=== PATIENT | female | born 1985 | race Caucasian/White ===

== ENCOUNTER 2021-03-21 19:53 | Observation (INO) | payer OTHER ==
[~2021-03-21] VITALS: Ht 157.5 cm; Wt 70.3 kg
--- NOTE | ~2021-03-21 | OP ---
[address] [address] OPERATIVE REPORT Name: ANA DORSEY Room: [address] [place]#: [id number] Admission: 03/21/21 Attend Phys: Tal Mckeon DO Discharge: 03/22/21 Date of : 83 Report #: [id number] THIS REPORT FOR: cc: FAM - No family physician/PCP FAM - No family physician/PCP Tal Mckeon DO ~ Dictated by Chris Vallejo DO DATE OF SURGERY: 03/22/2021 PREOPERATIVE DIAGNOSIS: Acute appendicitis. POSTOPERATIVE DIAGNOSIS: Acute appendicitis. PROCEDURE PERFORMED: Laparoscopic appendectomy. SURGEON: Tal Mckeon DO CO-SURGEON: Chris Vallejo, PGY5. PROCESSING SUPERVISOR: None. ANESTHESIA: General and local. SPECIMENS: Appendix. ESTIMATED BLOOD LOSS: 5 mL. COMPLICATIONS: None. FINDINGS: Acute appendicitis with localized peritonitis. INDICATIONS: The patient is a 36-year-old female who presented to the Emergency Room with acute right lower quadrant abdominal pain. CT scan revealed acute appendicitis, which was confirmed by physical exam. We discussed laparoscopic appendectomy at length including risks, benefits and alternatives and she agreed to proceed with surgery. DESCRIPTION OF PROCEDURE: After consent was obtained, the patient was taken to the operating room and placed in the supine position. SCDs applied to bilateral lower extremities, safety belt was applied to the patient to secure into the bed. Perioperative Zosyn was continued. General endotracheal anesthesia was administered by anesthesia without any complication. The patient's abdomen was prepped and draped in the standard sterile fashion. Timeout was performed, confirming the patient, procedure. An 11 blade scalpel was used to make a transverse incision just below the umbilicus. Electrocautery used for [address] [address] OPERATIVE REPORT Name: ANA DORSEY Room: [address] [place]#: [id number] Admission: 03/21/21 Attend Phys: Tal Mckeon DO Discharge: 03/22/21 Date of : 83 Report #: [id number] hemostasis and to dissect down to the level of fascia. Once the fascia was encountered, it was scored with electrocautery. The fascia was grasped between 2 Kochers and a hemostat was then used bluntly into the peritoneum. Two stitches of 0 Vicryl were placed on either side of the fascia, 5 mm Grant trocar was inserted into the abdomen. Insufflation was initiated. Intraabdominal contents were inspected. The appendix could not be seen. However, the cecum could be traced in the right lower quadrant. Two more trocars, one suprapubic and one in the left lower quadrant were placed under direct visualization. Left lower quadrant trocar was a 12 mm port. The tinea of the cecum was traced towards the terminal ileum. The appendix appeared to be wrapping retrocecal. It was grasped and elevated. It appeared to be injected and erythematous consistent with acute appendicitis. Harmonic scalpel was used to ligate across the mesoappendix towards the base of the appendix. A 45 purple load Endo-TERESO stapler device was used to fire across the base of the appendix at the junction with the cecum. Appendix was then placed in laparoscopic EndoCatch bag. Staple line was inspected. There was no evidence of bleeding. Insufflation was let down slightly again and there was no evidence of bleeding in the staple line. The pelvis was inspected. Uterus and ovaries appeared to be normal. At this point, insufflation was let down. All trocars were removed under direct visualization. Appendix was removed from the abdomen and sent for pathologic evaluation. Infraumbilical fascia was reapproximated with one stitch of 0 Vicryl in a [id number]-brnrb fashion. All skin incisions reapproximated with 4-0 Monocryl in subcuticular fashion. All needle, instrument and sponge counts correct x2 at the end of the case. The patient was awoken from general anesthesia and transferred to PACU in stable condition. By: [id number] Mckeon DO /shonna
[~2021-03-21 19:53] MED LIST: MACROBID 100 M100 M1 PO; NOHOMEMEDICATIONS
[2021-03-21 20:10] VITALS: BP 127/88
[2021-03-21 20:27] LABS: URINE BILIRUBIN NEGATIVE (Negative); URINE BLOOD 3+ (Negative); URINE CLARITY CLEAR; URINE COLOR YELLOW; URINE GLUCOSE-RANDOM NEGATIVE (Negative); URINE KETONES NEGATIVE (Negative); URINE LEUKOCYTES NEGATIVE (Negative); URINE NITRITE NEGATIVE (Negative); URINE PROTEIN NEGATIVE (Negative); URINE SPECIFIC GRAVITY >= 1.030 (1.005-1.030); URINE UROBILINOGEN 0.2 E.U./dl (0.2-1.0)
[2021-03-21 20:33] LABS: CASTS None Seen /LPF (None Seen); CRYSTALS None Seen /LPF (None Seen); MUCUS None Seen strn/LPF (None Seen); SQUAMOUS >10 Many /LPF (0-3)
[2021-03-21 20:34] LABS: URINE WBC 0-5 Rare /HPF (0-5)
[2021-03-21 20:35] LABS: URINE RBC 0-2 Rare /HPF (0-2)
[2021-03-21 21:08] LABS: ABSOLUTE BASOPHILS 0.1 thou/uL (0.0-0.2); ABSOLUTE EOSINOPHILS 0.2 thou/uL (0.0-0.7); ABSOLUTE LYMPHOCYTES 2.2 thou/uL (0.8-5.3); ABSOLUTE MONOCYTES 0.7 thou/uL (0.0-1.2); ABSOLUTE NEUTROPHILS 13.8 thou/uL (1.6-8.1); BASOPHILS 0.4 %; EOSINOPHILS 1.2 %; HEMATOCRIT 38.2 % (37.0-47.0); HEMOGLOBIN 12.8 gm/dL (12.0-15.0); LYMPHOCYTES 12.8 %; MCH 29.5 pg (26.0-34.0); MCHC 33.6 g/dL (28.0-37.0); MONOCYTES 4.3 %; MPV 8.4 fl. (7.2-11.1); NUCLEATED RBCS 0 /100WBC; PLATELET COUNT* 387 thou/uL (150-400); POLYS 81.3 %; RBC 4.34 mil/uL (4.20-5.00)
[2021-03-21 21:17] LABS: CALCIUM 8.7 mg/dL (8.5-10.1); CREATININE 0.9 mg/dL (0.6-1.3); POTASSIUM 3.5 mmol/L (3.5-5.1)
[2021-03-21 21:21] LABS: ALBUMIN 4.1 g/dL (3.4-5.0); TOTAL BILIRUBIN 0.2 mg/dL (<0.1-1.0); TOTAL PROTEIN 7.4 g/dL (6.4-8.2)
[2021-03-22] VITALS (8 sets, daily range): BP systolic 91–112; BP diastolic 47–89
[2021-03-22] MEDS ORDERED: ACETAMINOPHEN PO (15:34)
[2021-03-22] MEDS ORDERED: IBU-200200 MG PO (15:39)
[2021-03-22] MEDS ORDERED: OXYCODONE HCL 55 MG PO (15:40)
[2021-03-22] MEDS ORDERED: METRONIDAZOLE500 M4 PO (15:42)
== END 2021-03-22 16:29 | disposition home or self-care (01) ==
LOC: M.ERS 19:53 → M.3W 23:32 → M.TBA-ER 23:32 → M.3W 03-22 01:46
PROVIDERS: Physician Assistant; ADMIT Surgery; ATTEND Surgery
DX: K35.30 Acute appendicitis with localized peritonitis, without perforation or gangrene (principal); D72.829 Elevated white blood cell count, unspecified; Z20.822 Contact with and (suspected) exposure to COVID-19; Z79.899 Other long term (current) drug therapy; Z90.49 Acquired absence of other specified parts of digestive tract